=== PATIENT | male | born 1995 | race Caucasian/White ===

== ENCOUNTER 2018-10-10 15:59 | Emergency (ER) | payer OTHER ==
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
[2018-10-10] MEDS ORDERED: OXYCODONE/APAP 5/325 TAB PO ONE ×2 (16:49→18:11)
[2018-10-10 20:06] VITALS: BP 136/88
[2018-10-10] MEDS ORDERED: ONDANSETRON 4MG PREPACK#2 BTL TAKEHOME ONE (20:27)
[2018-10-10] MEDS ORDERED: OXYCODONE/APAP 5/325MG PREPACK#4 BTL TAKEHOME ONE (20:27)
== END 2018-10-10 20:51 | disposition home or self-care (01) ==
PROC: 2W35X3Z Immobilization of Back using Brace (ICD-10-PCS; principal; 2018-10-10)
DX: S22.031A Stable burst fracture of third thoracic vertebra, initial encounter for closed fracture (principal); S22.041A Stable burst fracture of fourth thoracic vertebra, initial encounter for closed fracture; V18.9XXA Unspecified pedal cyclist injured in noncollision transport accident in traffic accident, initial encounter; Y93.55 Activity, bike riding; Y92.89 Other specified places as the place of occurrence of the external cause

== ENCOUNTER → 2018-11-10 | Outpatient (CLI) | payer OTHER | LOC: FIMAGING 13:11 | PROVIDERS: ATTEND Neurological Surgery | DX: S22.000A Wedge compression fracture of unspecified thoracic vertebra, initial encounter for closed fracture (principal) ==